=== PATIENT | female | born 1980 | race Hispanic/Latino ===

== ENCOUNTER 2016-09-18 17:49 | Emergency (ER) | payer OTHER ==
[~2016-09-18 17:49] MED LIST: HYDR-4003 PO; Ibuprofen PO
[2016-09-18 17:55] VITALS: BP 116/94; PULSE 115; O2SAT 97
[2016-09-18 18:03] VITALS: BP 123/87; PULSE 117; RESP 24; O2SAT 97
--- NOTE | 2016-09-18 18:09 | ED.REPORT ---
HPI-Bite: Human/Animal Date of Service Sep 18, 2016 ED Provider: Nikolas Turcios DO Patient is a 36 year old female who presents to the ED due to multiple dog bites. The patient reports that she was trying to break up a fight between her two pit bulls and got caught between them. Both dogs have been vaccinated. The patient has multiple puncture wounds on her left forearm, bites to her right fingers and multiple lacerations on her left arm. Nursing Notes Stated Complaint: DOG BITE Chief Complaint: Extremity Trauma Nursing Notes Reviewed: Yes Allergies: Coded Allergies: No Known Allergies (Verified , 06/28/14) Scheduled PRN ([Ibuprofen]) 600 MG TABLET 600 MG PO Q6H PRN PRN For Pain Hydrocodone-Acetaminophen 5-325 mg (Hydrocodone-Acetaminophen 5-325 mg) 1 Each Tablet 1-2 EACH PO Q4 PRN PRN For Pain General Time Seen by MD: 18:08 Chief Complaint Dog bite Hx Obtained From: Patient Arrived By: Walk-in Onset Occurred: Just prior to arrival Context of Onset: Occurred at home Symptom Duration: Since onset Location: : Forearm left Severity: Current: Mild Associated with: Denies: Chills, Numbness Recent Healthcare: No recent doctor visit, No recent hospitalization Similar Sx Previous: No Past Medical History Past Medical History none reported Smoking History Unknown if Ever Smoker Social History Other Social History: Good social support Ambulatory Status Independent Review of Systems Constitutional: Denies: Chills, Fever Complete sys rev & neg: except as marked. Respiratory: Denies: Non-productive cough, Shortness of breath GI: Denies: Vomiting Musculoskeletal: Reports: Extremity pain (left arm), Extremity swelling Hematologic: Reports Bleeding Neurologic: Denies: Numbness, Weakness Physical Exam Vital Signs Vital Signs (First) Date Time Temp Pulse Resp B/P Pulse Ox O2 Delivery O2 Flow Rate FiO2 09/18/16 17:55 115 116/94 97 Room Air 09/18/16 18:03 24 09/18/16 21:40 37.0 Initial VS: Reviewed General/Constitutional: Awake, Alert, No acute distress Skin: No rash, Warm, Dry Head / Eyes: Atraumatic, Normocephalic, PERRL, EOMI Respiratory / Chest: Atraumatic, Breath sounds NL, Breath sounds = bilat, No respiratory distress Cardiovascular: Heart rate NL, Regular rhythm, Heart sounds NL UPPER EXTREMITIES: 2cm laceration to left dorsal forearm 6cm laceration to medial left forearm 4cm laceration to left medial forearm multiple puncture wounds on the left arm superficial laceration to right fingers Neurologic: Oriented X3, Speech NL, No motor deficits, No sensory deficits Psychiatric: Affect NL, Mood NL Interpretation & Diagnostics Lab Results Interpretation Test 09/18/16 18:45 Hold Purple Top Tube Received (Received) Hold Blue Top Tube Received (Received) Hold [place] Top Tube Received (Received) X-Ray Interpretation Xray Interpretation: IMPRESSION: 1. No fractures or dislocation. 2. 2 small densities in the distal 1st digit suggestive of small radiopaque foreign bodies associated with a laceration. Dictated by: Lalo Dhillon M.D. on 09/18/2016 at 19:02 Approved by: Lalo Dhillon M.D. on 09/18/2016 at 19:05 X-Ray Ordered: Hand left Interpretation / Wet Read by: Interpret - Radiologist Xray Interpretation: IMPRESSION: 1. No fractures. 2. Soft tissue lacerations of the mid forearm without radiopaque foreign bodies. Dictated by: Lalo Dhillon M.D. on 09/18/2016 at 19:00 Approved by: Lalo Dhillon M.D. on 09/18/2016 at 19:02 X-Ray Ordered: Radius ulna left Xray Interpretation: IMPRESSION: 1. No definite fractures or radiopaque foreign bodies. Dictated by: Lalo Dhillon M.D. on 09/18/2016 at 19:06 Approved by: Lalo Dhillon M.D. on 09/18/2016 at 19:07 X-Ray Ordered: Hand right Xray Interpretation: IMPRESSION: 1. No residual radiopaque foreign body identified. Dictated by: Lalo Dhillon M.D. on 09/18/2016 at 22:03 Approved by: Lalo Dhillon M.D. on 09/18/2016 at 22:04 X-Ray Ordered: Hand left Interpretation / Wet Read by: Interpret - Radiologist Procedures Laceration Management Laceration Management: 16 sutures Time: 21:58 Procedure Performed by: ED physician Consent / Setup / Site Prep: Consent from patient, Time-out performed, Hand hygiene observed Location of Wound: 2cm laceration to dorsal left forearm 6cm laceration to medial left forearm 4cm laceration to the medial left forearm Wound Length: 2 cm, 4 cm, 6 cm Local Anesthesia: Lidocaine w epi 1% Wound Preparation: Betadine Debridement: Yes Irrigation: Copious Foreign Body Explore / Removal: Explored for foreign body Repair Skin: Nylon Suture Technique: Simple Post-Procedure / Complications: Antibiotic oint applied, Dressing applied, No complications, Condition improved, Tolerated procedure well, Patient stable Re-Eval/Medical Decision Med Decision/Clinical Course Multiple puncture wounds and lacerations from the dog bites. The right index finger laceration is roughly 0.5 cm in length however it is very close to the flexor tendon. No obvious flexor tendon deficits. Normal stool point discrimination distal. His wound was cleaned and dressed. She was splinted. I will refer this 1 or so for definitive follow-up on the flexor tendon strength and assessment. The left forearm was cleaned and closed. I closed all the wounds that would require closure. We left the remainder of the wounds open. This was of course after copious irrigation and Betadine preparation. IV Unasyn was given. Plan for Augmentin and Percocet for pain. She will follow up here on Wednesday for wound check and then or phone next week. Re-Evaluation/Progress #1: Time of Eval: 19:08 Re-Evaluation/Progress Note: Discussed plan for sutures. The patient understands and agrees to the plan for sutures. All questions were addressed. Re-Evaluation/Progress #2: Time of Eval: 20:14 Re-Evaluation/Progress Note: Anesthetized thumb for debriedment. Re-Evaluation/Progress #3: Time of Eval: 22:00 Re-Evaluation/Progress Note: Discussed plan for discharge. The patient understands and agrees to the plan for discharge. All questions were addressed. Counseled Regarding: Diagnosis, Lab results, Need for follow-up, When/why to return to ED Discharge & Departure Impression: Primary Impression: Dog bite Encounter type: initial encounter Qualified Code: W54.0XXA - Bitten by dog, initial encounter Additional Impression: Laceration Disposition: Home Discharge Condition All VS Reviewed: Yes Patient Instructions: Animal Bite (ED) Additional Instructions: You can come back on Wednesday for a wound check here. Take Augmentin 2x for the next 7 days. You can take 1-2 Percocet every 6 hours for pain. Do not drink alcohol or drive while taking the pain medication. Do not combine the pain medication with Acetaminophen. Keep the wound dry and clean. Watch for infection. You should have the sutures removed in 7-10 days. You can come back to the emergency department or follow up with your primary care physician for this. Follow up with Dr. Neville next week to have your hand checked. I am concerned about injury to the tendon in your right finger. Return to the emergency department if you develop any new or worsening symptoms including increased redness, swelling, pus drainage or pain. Referrals: Florencia Daily MD (PCP) Td Neville MD Attestation Portions of this note were transcribed by Romelia Rasheed. I, Dr. Turcios personally performed the history, physical exam and medical decision-making; I reviewed and confirmed the accuracy of the information in the transcribed note. Signed by: Curtis Saenz, 09/18/16 and 2200 copies to: Florencia Daily MD; Td Neville MD, Todd P DO Sep 18, 2016 18:09 Kathie Rasheed Sep 18, 2016 18:25
[2016-09-18] MEDS ORDERED: Lidocaine 1%-Epi 1:100,000 50 mL Inj NERVEBLOCK ONE (18:20)
[2016-09-18] MEDS ORDERED: Ampicillin-Sulbactam Inj 3,000 MG in 0.9% Sodium Chloride 100 ML IV ONE (18:20)
[2016-09-18] MEDS: HYDROmorphone 0.5 mg/0.5 mL iSecure Syringe IVPUSH PRN ×4 (18:49→20:16)
--- NOTE | 2016-09-18 19:03 | DRSVH ---
PROCEDURE: X-RAY LEFT FOREARM, TWO VIEWS ([id number]) INDICATIONS: dog bite to hands and left forearm TECHNIQUE: 2 views of the forearm were acquired. COMPARISON: None. FINDINGS: Bones: No fractures or dislocations. No suspicious bony lesions. Soft tissues: There are soft tissue lacerations along the forearm at the level of the radial mid shaf t. No radiopaque foreign bodies. IMPRESSION: 1. No fractures. 2. Soft tissue lacerations of the mid forearm without radiopaque foreign bodies. Dictated by: Lalo Dhillon M.D. on 09/18/2016 at 19:00 Approved by: Lalo Dhillon M.D. on 09/18/2016 at 19:02
--- NOTE | 2016-09-18 19:07 | DRSVH ---
PROCEDURE: X-RAY LEFT HAND, MINIMUM THREE VIEWS ([id number]) INDICATIONS: dog bite to hands and left forearm TECHNIQUE: 3 views of the left hand acquired. COMPARISON: None. FINDINGS: Bones: No definite fracture or dislocation. Carpal bones are normally aligned. Soft tissues: There are 2 small calcific densities measuring up to 2 mm along the volar aspect of the distal 1st digit suggestive of small foreign bodies associated with a soft tissue laceration IMPRESSION: 1. No fractures or dislocation. 2. 2 small densities in the distal 1st digit suggestive of small radiopaque foreign bodies associate d with a laceration. Dictated by: Lalo Dhillon M.D. on 09/18/2016 at 19:02 Approved by: Lalo Dhillon M.D. on 09/18/2016 at 19:05
--- NOTE | 2016-09-18 19:09 | DRSVH ---
PROCEDURE: X-RAY RIGHT HAND, MINIMUM THREE VIEWS ([id number]) INDICATIONS: DOG BITE TECHNIQUE: 3 views of the right hand acquired. COMPARISON: None. FINDINGS: Bones: Evaluation slightly limited by external metallic watch. No definite fractures or dislocation s. Carpal bones are normally aligned. No suspicious bony lesions. Soft tissues: No radiopaque foreign bodies. IMPRESSION: 1. No definite fractures or radiopaque foreign bodies. Dictated by: Lalo Dhillon M.D. on 09/18/2016 at 19:06 Approved by: Lalo Dhillon M.D. on 09/18/2016 at 19:07
[2016-09-18 19:58] VITALS: BP 140/82; PULSE 105; RESP 20; O2SAT 94
[2016-09-18 21:40] VITALS: BP 135/75; PULSE 88; RESP 20; O2SAT 94
--- NOTE | 2016-09-18 22:06 | DRSVH ---
PROCEDURE: X-RAY LEFT HAND, TWO VIEWS ([id number]) INDICATIONS: post foreign body removal TECHNIQUE: 2 views of the hand(s) acquired. COMPARISON: [facility], CR, XR HAND 3VW LT, 09/18/2016, 18:21. FINDINGS: Bones: No fractures or dislocations. Carpal bones are normally aligned. No suspicious bony lesions . Soft tissues: There is interval removal of the 2 small radiopaque densities within the soft tissues o f the 1st digit. A small laceration is redemonstrated on the volar aspect of the 1st digit distally. No residual radiopaque foreign bodies identified. IMPRESSION: 1. No residual radiopaque foreign body identified. Dictated by: Lalo Dhillon M.D. on 09/18/2016 at 22:03 Approved by: Lalo Dhillon M.D. on 09/18/2016 at 22:04
[2016-09-18] MEDS ORDERED: _oxyCODONE/APAP 5-325 mg Tablet PO PRN (22:10)
[2016-09-18 23:07] VITALS: BP 113/82; PULSE 16; RESP 16; O2SAT 95
== END 2016-09-18 23:02 | disposition home or self-care (01) ==
LOC: SED 17:49
DX: S51.812A Laceration without foreign body of left forearm, initial encounter (principal); S61.210A Laceration without foreign body of right index finger without damage to nail, initial encounter; W54.0XXA Bitten by dog, initial encounter; Y93.89 Activity, other specified; Y99.8 Other external cause status; Y92.019 Unspecified place in single-family (private) house as the place of occurrence of the external cause
CPT/HCPCS: 11042; 12004; 73090; 73120; 73130; 96365; 96375; 96376; 99284; J0295; J1170

== ENCOUNTER 2016-09-20 18:37 | Emergency (ER) | payer OTHER ==
[~2016-09-20] VITALS: Ht 162.6 cm; Wt 77.3 kg
[2016-09-20 18:56] VITALS: BP 104/68; PULSE 77; RESP 16; O2SAT 96
--- NOTE | 2016-09-20 19:18 | ED.REPORT ---
HPI-Bite: Human/Animal Date of Service Sep 20, 2016 ED Provider: Nikolas Turcios DO Patient is a 36 year old female who presents to the ED for a wound check. The patient was seen at the ED two days ago for multiple lacerations to her left forearm and right finger. The patient was trying to break up her two dogs while they were fighting and got caught between them. Patient has bruising to the left forearm and right fingers. Nursing Notes Stated Complaint: CHECK UP Chief Complaint: Wound Recheck/Suture Removal Nursing Notes Reviewed: Yes Allergies: Coded Allergies: No Known Allergies (Verified , 09/20/16) Scheduled PRN ([Ibuprofen]) 600 MG TABLET 600 MG PO Q6H PRN PRN For Pain Hydrocodone-Acetaminophen 5-325 mg (Hydrocodone-Acetaminophen 5-325 mg) 1 Each Tablet 1-2 EACH PO Q4 PRN PRN For Pain General Time Seen by MD: 19:15 Chief Complaint Dog bite Hx Obtained From: Patient Arrived By: Walk-in Onset Occurred: 3 days ago Symptom Duration: Since onset Location: : Forearm left: Hand right Severity: Current: No pain currently Recent Healthcare: Recent doctor visit Similar Sx Previous: Yes Past Medical History Past Medical History none reported Smoking History Unknown if Ever Smoker Social History Other Social History: Good social support Ambulatory Status Independent Review of Systems Review of Systems Note: laceration with sutures on left forearm Constitutional: Denies: Chills, Fever Skin: Reports Bruising, Denies Itching, Denies Rash, Denies Swelling, Denies Unexplained bruises Complete sys rev & neg: except as marked. Physical Exam Vital Signs Vital Signs (First) Date Time Temp Pulse Resp B/P Pulse Ox O2 Delivery O2 Flow Rate FiO2 09/20/16 18:56 36.6 77 16 104/68 96 Room Air Initial VS: Reviewed, Vital signs abnormal General/Constitutional: Awake, Alert, No acute distress Skin: Atraumatic, Color NL, No rash, Warm, Dry left forearm laceration right finger laceration bruising but no signs of induration or infection healing nicely Head / Eyes: Atraumatic, Normocephalic, PERRL, EOMI Respiratory / Chest: Atraumatic, No respiratory distress Psychiatric: Affect NL, Mood NL Re-Eval/Medical Decision Re-Evaluation/Progress : Time of Eval: 19:15 Re-Evaluation/Progress Note: Discussed follow up plan and discharge during initial interview. The patient understands and agrees to the plan. All questions were addressed. Counseled Regarding: Diagnosis, Need for follow-up, When/why to return to ED Discharge & Departure Impression: Primary Impression: Dog bite Encounter type: initial encounter Qualified Code: W54.0XXA - Bitten by dog, initial encounter Additional Impression: Laceration Disposition: Home Discharge Condition All VS Reviewed: Yes Patient Instructions: Animal Bite (DC), Laceration (ED) Additional Instructions: The wounds are healing well. Keep them covered with antibacterial ointment. Have the stitches removed in roughly 7-10 days. Keep the orthopedic follow-up to have her flexor tendon on your right hand evaluated. Return if any problems or any new or worsening symptoms. Watch closely for signs of infection: Pain, redness, swelling or lymphangitic streaking. Return promptly if any of these occur. Do not drive or drink L [place] and some acetaminophen while taking the pain medicine. Referrals: Florencia Daily MD (PCP) Scribe Attestation Portions of this note were transcribed by Romelia Rasheed. I, Dr. Turcios personally performed the history, physical exam and medical decision-making; I reviewed and confirmed the accuracy of the information in the transcribed note. Signed by: Romelia Acevedo, 09/20/16 and 1924 copies to: Florencia Daily MD, Todd P DO Sep 20, 2016 19:18 Kathie Rasheed Sep 20, 2016 19:23
== END 2016-09-20 19:25 | disposition home or self-care (01) ==
LOC: SED 18:37
DX: Z48.01 Encounter for change or removal of surgical wound dressing (principal)